=== PATIENT | male | born 1955 | race Caucasian/White ===

== ENCOUNTER 2019-01-12 10:57 | Inpatient (IN) ==
[2019-01-12 12:35] LABS: Basophils % 0.4 % (0.0-0.8); Eosinophils # 0.1 10*3/uL (0.0-0.87); Hematocrit 40.3 VOL% (42.0-52.0); Hemoglobin 13.3 GM/DL (14.0-18.0); Immature Granulocytes % 0.4 %; Immature Granulocytes Absolute 0.01 #; Lymphocytes # 0.9 10*3/uL (1.4-4.0); Mean Corpuscular Volume 101.5 FL (87-102); Mean Platelet Volume 12.1 FL (9.6-12.0); Monocytes % 9.7 % (1.7-12.7); Neutrophils % 54.5 % (38.7-73.9); Red Blood Count 3.97 MC/CUMM (3.8-5.5); White Blood Count 2.7 T/CUMM (4-12)
[2019-01-12 12:39] LABS: Platelet Count 45 T/CUMM (130-400)
[2019-01-12 12:57] LABS: Albumin 3.3 G/DL (3.4-5.0); Bilirubin,Total 1.8 MG/DL (0.2-1.0); Calcium 9.5 MG/DL (8.5-10.1); Total Protein 7.7 G/DL (6.4-8.3)
[2019-01-12 12:58] LABS: Platelet Estimate Decreased
[2019-01-12 12:59] LABS: Anisocytosis 1+
[2019-01-12] MEDS ORDERED: cloNIDine 0.1 MG TABLET PO PRN (13:59)
[2019-01-12] MEDS ORDERED: NITROGLYCERIN SL 0.4 MG TABLET SL PRN (13:59)
[2019-01-12] MEDS ORDERED: NALOXONE 0.4 MG/ML VIAL IV STA (14:22)
[2019-01-12] MEDS ORDERED: GLUCAGON 1 MG VIAL IM PRN (14:37)
[2019-01-12] MEDS ORDERED: DEXTROSE 50% 25 GM/50 ML VIAL IV PRN (14:37)
[2019-01-12] MEDS ORDERED: hydrALAZINE 20 MG/1 ML VIAL IV PRN (14:49)
[2019-01-12 14:51] LABS: Allen Test Positive; Pt O2 Delivery Device Room Air
[2019-01-12 14:52] LABS: ABG Base Excess 0.2 MMOL/L (-2.5-2.5); ABG HCO3 24.6 MMOL/L (20-26); ABG PCO2 34.9 MM HG (35-48); ABG PH 7.441 (7.35-7.45); ABG TCO2 20.7 MMOL/L (23-27)
[2019-01-12] MEDS ORDERED: LACTULOSE 320 GM/480 ML BOTTLE RECTAL ONE (18:00)
[2019-01-12] MEDS: INSULIN REGULAR 100 UNIT/ML SUBCUT SCH (18:32)
[2019-01-12] MEDS: PIPERACILLIN/TAZOBACTAM 3,375 MG in SODIUM CHLORIDE 0.9% 100 ML IV SCH (18:32)
[2019-01-12 18:40] LABS: Hepatitis B Core IgM Quant 0.08 Index; Hepatitis B Surface Ag Quant < 0.10 Index; Hepatitis B Surface Ag Result Negative (Negative); Hepatitis C Virus Ab Result Negative (Negative)
[2019-01-12 20:42] LABS: Apearance,Urine CLEAR (Clear); Bilirubin,Urine Negative (Negative); Blood, Urine Negative (Negative); Glucose,Urine (UA) Negative (Negative); Hyaline Casts,Urine 1 /LPF (0-3); Ketones,Urine Negative (Negative); Mucus,Urine Occasional /LPF (Occasional); Nitrite,Urine Negative (Negative); Protein,Urine Negative; Squamous Epithelial Cell,Urine Occasional /HPF (0-10); Urine Color Yellow (Yellow); Urine Specific Gravity 1.017 (1.001-1.035); WBC,Urine 1 /HPF (0-6)
[2019-01-12] MEDS ORDERED: LACTULOSE 20 GM/30 ML UDCUP PO ONE (21:00)
[2019-01-12] MEDS ORDERED: SIMVASTATIN 10 MG TABLET PO SCH (21:00)
[2019-01-12] MEDS: GLIMEPIRIDE 4 MG TABLET PO SCH (21:15)
[2019-01-12] MEDS ORDERED: VANCOMYCIN INJ 1,500 MG in SODIUM CHLORIDE 0.9% 500 ML IV SCH (22:00)
[2019-01-13] MEDS: INSULIN REGULAR 100 UNIT/ML SUBCUT SCH ×4 (00:36→18:17)
[2019-01-13] MEDS: PIPERACILLIN/TAZOBACTAM 3,375 MG in SODIUM CHLORIDE 0.9% 100 ML IV SCH ×3 (02:55→18:02)
[2019-01-13 05:48] LABS: Basophils % 0.5 % (0.0-0.8); Eosinophils # 0.1 10*3/uL (0.0-0.87); Eosinophils % 2.2 % (0.00-10.9); Hemoglobin 12.5 GM/DL (14.0-18.0); Immature Granulocytes % 0.2 %; Immature Granulocytes Absolute 0.01 #; Lymphocytes # 1.1 10*3/uL (1.4-4.0); Lymphocytes % 26.5 % (21.2-54.2); Mean Corpuscular HGB Conc 32.9 GM/DL (32-36); Mean Corpuscular Volume 102.2 FL (87-102); Mean Platelet Volume 12.9 FL (9.6-12.0); Monocytes % 12.5 % (1.7-12.7); Neutrophils % 58.1 % (38.7-73.9); Platelet Count 48 T/CUMM (130-400); Red Blood Count 3.72 MC/CUMM (3.8-5.5); Red Cell Distribution Width 15.2 % (9.3-17.3); White Blood Count 4.1 T/CUMM (4-12)
[2019-01-13 06:13] LABS: Atypical Lymphocytes Few; Eosinophils 1 % (0-10); Hypochromasia Slight; Lymphocytes 33 % (20-55); Macrocytosis Slight; Platelet Estimate Decreased; Segmented Neutrophils 60 % (50-85); Total Cells Counted 100
[2019-01-13 06:38] LABS: Bilirubin,Total 1.4 MG/DL (0.2-1.0); Calcium 8.7 MG/DL (8.5-10.1); Osmolality,Calculated 294.7 MOS/KG (273-304); Total Protein 7.1 G/DL (6.4-8.3)
[2019-01-13] MEDS ORDERED: MAGNESIUM SULF RIDER 4 GM in PREMIX 1 EACH IV ONE (07:16)
[2019-01-13] MEDS ORDERED: SODIUM PHOSPHATE INJ 30 MMOL in SODIUM CHLORIDE 0.9% 250 ML IV ONE (08:00)
[2019-01-13] MEDS: GLIMEPIRIDE 4 MG TABLET PO SCH ×2 (08:28→21:25)
[2019-01-13] MEDS: FENOFIBRATE 145 MG TABLET PO SCH (08:28)
[2019-01-13] MEDS: SERTRALINE 25 MG TABLET PO SCH (08:28)
[2019-01-13] MEDS: NALOXEGOL 25 MG PO SCH (08:29)
[2019-01-13] MEDS: TAMSULOSIN 0.4 MG CAPSULE PO SCH (08:29)
[2019-01-13] MEDS: ISOSORBIDE MONONITRATE 60 MG TABLET PO SCH (08:29)
[2019-01-13] MEDS: FERROUS SULFATE 325 MG TABLET PO SCH (08:29)
[2019-01-13] MEDS ORDERED: LACTULOSE 20 GM/30 ML UDCUP PO PRN (08:37)
[2019-01-13] MEDS: LACTULOSE 20 GM/30 ML UDCUP PO SCH ×3 (10:30→21:25)
[2019-01-13] MEDS: RIFAXIMIN 550 MG TABLET PO SCH ×2 (16:28→21:25)
[2019-01-14] MEDS: INSULIN REGULAR 100 UNIT/ML SUBCUT SCH ×4 (00:37→18:33)
[2019-01-14] MEDS: PIPERACILLIN/TAZOBACTAM 3,375 MG in SODIUM CHLORIDE 0.9% 100 ML IV SCH ×3 (01:26→17:14)
[2019-01-14] MEDS: LACTULOSE 20 GM/30 ML UDCUP PO SCH ×4 (03:16→21:06)
[2019-01-14 06:20] LABS: Basophils % 0.2 % (0.0-0.8); Eosinophils # 0.1 10*3/uL (0.0-0.87); Hematocrit 39.6 VOL% (42.0-52.0); Hemoglobin 12.8 GM/DL (14.0-18.0); Immature Granulocytes % 0.4 %; Immature Granulocytes Absolute 0.02 #; Lymphocytes # 0.6 10*3/uL (1.4-4.0); Lymphocytes % 13.7 % (21.2-54.2); Mean Corpuscular HGB Conc 32.3 GM/DL (32-36); Mean Corpuscular Volume 102.3 FL (87-102); Mean Platelet Volume 12.2 FL (9.6-12.0); Monocytes % 12.4 % (1.7-12.7); Neutrophils % 71.3 % (38.7-73.9); Red Blood Count 3.87 MC/CUMM (3.8-5.5); Red Cell Distribution Width 15.4 % (9.3-17.3); White Blood Count 4.5 T/CUMM (4-12)
[2019-01-14 06:21] LABS: Platelet Count 43 T/CUMM (130-400)
[2019-01-14 06:36] LABS: Albumin 3.1 G/DL (3.4-5.0); Bilirubin,Total 2.3 MG/DL (0.2-1.0); Calcium 8.5 MG/DL (8.5-10.1); Osmolality,Calculated 292.7 MOS/KG (273-304); Risk Ratio 3.71; Total Protein 7.2 G/DL (6.4-8.3); VLDL CHOLESTEROL 28.2 MG/DL
[2019-01-14] MEDS: FERROUS SULFATE 325 MG TABLET PO SCH (10:20)
[2019-01-14] MEDS: SERTRALINE 25 MG TABLET PO SCH (10:20)
[2019-01-14] MEDS: NALOXEGOL 25 MG PO SCH (10:21)
[2019-01-14] MEDS: TAMSULOSIN 0.4 MG CAPSULE PO SCH (10:21)
[2019-01-14] MEDS: RIFAXIMIN 550 MG TABLET PO SCH ×2 (10:21→21:06)
[2019-01-14] MEDS: ISOSORBIDE MONONITRATE 60 MG TABLET PO SCH (10:21)
[2019-01-14] MEDS: GLIMEPIRIDE 4 MG TABLET PO SCH ×2 (10:21→21:06)
[2019-01-14] MEDS: FENOFIBRATE 145 MG TABLET PO SCH (10:21)
[2019-01-14] MEDS ORDERED: ACETYLCYSTEINE INJ 15,000 MG in DEXTROSE 5% 100 ML IV ONE (14:00)
[2019-01-14] MEDS: ACETYLCYSTEINE INJ 10,000 MG in DEXTROSE 5% 1,000 ML IV SCH ×2 (16:02→21:06)
[2019-01-15] MEDS: PIPERACILLIN/TAZOBACTAM 3,375 MG in SODIUM CHLORIDE 0.9% 100 ML IV SCH ×3 (00:27→18:02)
[2019-01-15] MEDS: INSULIN REGULAR 100 UNIT/ML SUBCUT SCH ×4 (00:53→18:04)
[2019-01-15] MEDS: LACTULOSE 20 GM/30 ML UDCUP PO SCH ×4 (04:04→23:41)
[2019-01-15 05:30] LABS: Basophils % 0.5 % (0.0-0.8); Eosinophils # 0.1 10*3/uL (0.0-0.87); Eosinophils % 3.4 % (0.00-10.9); Hematocrit 36.3 VOL% (42.0-52.0); Immature Granulocytes % 0.2 %; Immature Granulocytes Absolute 0.01 #; Lymphocytes # 1.2 10*3/uL (1.4-4.0); Lymphocytes % 29.7 % (21.2-54.2); Mean Corpuscular HGB Conc 33.1 GM/DL (32-36); Mean Corpuscular Volume 100.8 FL (87-102); Mean Platelet Volume 12.8 FL (9.6-12.0); Monocytes % 10.6 % (1.7-12.7); Neutrophils % 55.6 % (38.7-73.9); Red Cell Distribution Width 15.2 % (9.3-17.3); White Blood Count 4.1 T/CUMM (4-12)
[2019-01-15 05:33] LABS: Albumin 2.7 G/DL (3.4-5.0); Bilirubin,Total 2.4 MG/DL (0.2-1.0); Calcium 8.4 MG/DL (8.5-10.1); Total Protein 6.9 G/DL (6.4-8.3)
[2019-01-15 05:43] LABS: Platelet Count 47 T/CUMM (130-400)
[2019-01-15] MEDS: ACETYLCYSTEINE INJ 10,000 MG in DEXTROSE 5% 1,000 ML IV SCH ×3 (06:00→17:58)
[2019-01-15] MEDS ORDERED: MAGNESIUM SULF RIDER 4 GM in PREMIX 1 EACH IV ONE (07:11)
[2019-01-15] MEDS ORDERED: POTASSIUM CHLORIDE 20 MEQ TABLET PO ONE (07:12)
[2019-01-15] MEDS ORDERED: POTASSIUM PHOSPHATE 30 MMOL in SODIUM CHLORIDE 0.9% 250 ML IV ONE (07:45)
[2019-01-15] MEDS: INSULIN GLARGINE 100 UNIT/ML SUBCUT SCH (09:50)
[2019-01-15] MEDS: RIFAXIMIN 550 MG TABLET PO SCH ×2 (09:52→20:41)
[2019-01-15] MEDS: ISOSORBIDE MONONITRATE 60 MG TABLET PO SCH (09:53)
[2019-01-15] MEDS: GLIMEPIRIDE 4 MG TABLET PO SCH ×2 (09:53→20:41)
[2019-01-15] MEDS: SERTRALINE 25 MG TABLET PO SCH (09:53)
[2019-01-15] MEDS: FENOFIBRATE 145 MG TABLET PO SCH (09:54)
[2019-01-15] MEDS: FERROUS SULFATE 325 MG TABLET PO SCH (09:54)
[2019-01-15] MEDS: TAMSULOSIN 0.4 MG CAPSULE PO SCH (09:54)
[2019-01-15] MEDS: NALOXEGOL 25 MG PO SCH (12:00)
[2019-01-15] MEDS ORDERED: GLUCAGON 1 MG VIAL IM PRN (17:28)
[2019-01-15] MEDS ORDERED: DEXTROSE 50% 25 GM/50 ML VIAL IV PRN (17:28)
[2019-01-15] MEDS: INSULIN LISPRO 100 UNIT/ML SUBCUT SCH (18:03)
[2019-01-16] MEDS: INSULIN REGULAR 100 UNIT/ML SUBCUT SCH ×4 (00:55→17:53)
[2019-01-16] MEDS: PIPERACILLIN/TAZOBACTAM 3,375 MG in SODIUM CHLORIDE 0.9% 100 ML IV SCH ×3 (02:02→17:22)
[2019-01-16] MEDS: LACTULOSE 20 GM/30 ML UDCUP PO SCH ×4 (03:51→21:11)
[2019-01-16] MEDS: INSULIN GLARGINE 100 UNIT/ML SUBCUT SCH (09:39)
[2019-01-16] MEDS: INSULIN LISPRO 100 UNIT/ML SUBCUT SCH ×3 (09:39→17:22)
[2019-01-16] MEDS: TAMSULOSIN 0.4 MG CAPSULE PO SCH (09:40)
[2019-01-16] MEDS: SERTRALINE 25 MG TABLET PO SCH (09:40)
[2019-01-16] MEDS: FENOFIBRATE 145 MG TABLET PO SCH (09:40)
[2019-01-16] MEDS: GLIMEPIRIDE 4 MG TABLET PO SCH ×2 (09:40→21:11)
[2019-01-16] MEDS: ISOSORBIDE MONONITRATE 60 MG TABLET PO SCH (09:40)
[2019-01-16] MEDS: ACETYLCYSTEINE INJ 10,000 MG in DEXTROSE 5% 1,000 ML IV SCH ×2 (09:41→13:38)
[2019-01-16] MEDS: FERROUS SULFATE 325 MG TABLET PO SCH (09:41)
[2019-01-16] MEDS: RIFAXIMIN 550 MG TABLET PO SCH ×2 (09:41→21:11)
[2019-01-16] MEDS ORDERED: POTASSIUM CHLORIDE 20 MEQ TABLET PO ONE (10:36)
[2019-01-16] MEDS ORDERED: MAGNESIUM SULF RIDER 2 GM in PREMIX 1 EACH IV ONE (10:37)
[2019-01-17] MEDS: INSULIN REGULAR 100 UNIT/ML SUBCUT SCH ×3 (01:35→13:03)
[2019-01-17] MEDS: PIPERACILLIN/TAZOBACTAM 3,375 MG in SODIUM CHLORIDE 0.9% 100 ML IV SCH ×2 (01:37→09:17)
[2019-01-17] MEDS: LACTULOSE 20 GM/30 ML UDCUP PO SCH ×2 (03:56→08:56)
[2019-01-17 08:19] LABS: Calcium 8.4 MG/DL (8.5-10.1)
[2019-01-17 08:20] LABS: Osmolality,Calculated 290.1 MOS/KG (273-304)
[2019-01-17] MEDS: GLIMEPIRIDE 4 MG TABLET PO SCH (08:55)
[2019-01-17] MEDS: TAMSULOSIN 0.4 MG CAPSULE PO SCH (08:55)
[2019-01-17] MEDS: SERTRALINE 25 MG TABLET PO SCH (08:55)
[2019-01-17] MEDS: FERROUS SULFATE 325 MG TABLET PO SCH (08:55)
[2019-01-17] MEDS: ISOSORBIDE MONONITRATE 60 MG TABLET PO SCH (08:55)
[2019-01-17] MEDS: FENOFIBRATE 145 MG TABLET PO SCH (08:56)
[2019-01-17] MEDS: INSULIN LISPRO 100 UNIT/ML SUBCUT SCH ×2 (08:56→13:03)
[2019-01-17] MEDS: INSULIN GLARGINE 100 UNIT/ML SUBCUT SCH (08:56)
[2019-01-17] MEDS: RIFAXIMIN 550 MG TABLET PO SCH (08:56)
[2019-01-17 10:11] LABS: Folate 5.9 NG/ML (5.4-24.0)
[2019-01-17 11:51] VITALS: BP 127/65
== END 2019-01-17 13:02 | DRG 441 ==
LOC: EDBD → EDUNIT# → N.EDINP 10:57 → N.ED 10:57 → N.2E 17:40
PROVIDERS: ADMIT Internal Medicine; ATTEND Internal Medicine

== ENCOUNTER 2019-04-06 18:20 | Inpatient (IN) ==
[2019-04-06 20:01] LABS: Basophils % 0.5 % (0.0-0.8); Eosinophils # 0.1 10*3/uL (0.0-0.87); Eosinophils % 2.6 % (0.00-10.9); Hematocrit 41.1 VOL% (42.0-52.0); Hemoglobin 13.1 GM/DL (14.0-18.0); Immature Granulocytes % 0.3 %; Immature Granulocytes Absolute 0.01 #; Lymphocytes % 25.1 % (21.2-54.2); Mean Corpuscular HGB Conc 31.9 GM/DL (32-36); Mean Corpuscular Volume 103.3 FL (87-102); Mean Platelet Volume 12.7 FL (9.6-12.0); Monocytes % 11.8 % (1.7-12.7); Neutrophils % 59.7 % (38.7-73.9); Platelet Count 53 T/CUMM (130-400); Red Blood Count 3.98 MC/CUMM (3.8-5.5); Red Cell Distribution Width 16.1 % (9.3-17.3); White Blood Count 3.9 T/CUMM (4-12)
[2019-04-06 20:09] LABS: INR 1.2; PT Patient Result 12.8 SECS (9.6-12.2)
[2019-04-06 20:13] LABS: Alanine Aminotransferase 27 U/L (16-61); Albumin 3.3 G/DL (3.4-5.0); Alkaline Phosphatase 130 U/L (45-117); Aspartate Amino Transferase 51 U/L (0-37); Blood Urea Nitrogen 21 MG/DL (7-18); Calcium 9.5 MG/DL (8.5-10.1); Estimated Glom Filtration Rate 74 ML/MIN; Glucose 184 MG/DL (74-106); Osmolality,Calculated 286.4 MOS/KG (273-304); Total Protein 7.8 G/DL (6.4-8.3); Troponin I < 0.015 NG/ML (0.00-0.045)
[2019-04-06 20:39] LABS: Hypochromasia Slight
[2019-04-06 20:40] LABS: Anisocytosis 1+; Macrocytosis 1+
[2019-04-06 20:41] LABS: Platelet Estimate Adequate
[2019-04-06] MEDS ORDERED: MAGNESIUM SULF RIDER 2 GM in PREMIX 1 EACH IV STA (21:05)
[2019-04-06 21:55] LABS: Apearance,Urine CLEAR (Clear); Bilirubin,Urine Negative (Negative); Blood, Urine Negative (Negative); Glucose,Urine (UA) 150 mg/dL (Negative); Hyaline Casts,Urine 1 /LPF (0-3); Ketones,Urine Negative (Negative); Mucus,Urine Occasional /LPF (Occasional); Nitrite,Urine Negative (Negative); Protein,Urine Negative; RBC,Urine <1 /HPF (0-4); Squamous Epithelial Cell,Urine Occasional /HPF (0-10); Urine Color Yellow (Yellow); Urine Specific Gravity 1.023 (1.001-1.035); WBC,Urine 3 /HPF (0-6)
[2019-04-06 22:02] LABS: Barbiturates Screen,Urine Negative (Negative); Benzodiazepines Screen,Urine Negative (Negative); Cannabinoid Screen,Urine Negative (Negative); Opiate Screen,Urine Negative (Negative); Phencyclidine Screen,Urine Negative (Negative)
[2019-04-06] MEDS ORDERED: NICOTINE 21 MG/24 HR PATCH TRANSDERM PRN (22:51)
[2019-04-06] MEDS ORDERED: ACETAMINOPHEN 325 MG TABLET PO PRN (22:51)
[2019-04-06] MEDS ORDERED: ALBUTEROL 2.5 MG/3 ML NEB RESP TX PRN (22:51)
[2019-04-06] MEDS ORDERED: ONDANSETRON 4 MG/2 ML VIAL IV PRN (22:51)
[2019-04-06] MEDS ORDERED: guaiFENesin/DM ER 600-30 MG TABLET PO PRN (22:51)
[2019-04-06] MEDS ORDERED: GLUCAGON 1 MG VIAL IM PRN ×2 (22:51→23:11)
[2019-04-06] MEDS ORDERED: DEXTROSE 50% 25 GM/50 ML VIAL IV PRN ×2 (22:51→23:11)
[2019-04-06] MEDS ORDERED: DOCUSATE SODIUM 100 MG CAPSULE PO PRN (22:51)
[2019-04-06] MEDS ORDERED: hydrALAZINE 20 MG/1 ML VIAL IV PRN (22:51)
[2019-04-07] MEDS: LACTULOSE 20 GM/30 ML UDCUP PO SCH ×5 (01:00→20:27)
[2019-04-07 05:21] LABS: Basophils % 0.5 % (0.0-0.8); Eosinophils # 0.2 10*3/uL (0.0-0.87); Eosinophils % 3.8 % (0.00-10.9); Hematocrit 39.2 VOL% (42.0-52.0); Hemoglobin 12.5 GM/DL (14.0-18.0); Immature Granulocytes % 0.5 %; Immature Granulocytes Absolute 0.02 #; Lymphocytes # 1.1 10*3/uL (1.4-4.0); Lymphocytes % 28.9 % (21.2-54.2); Mean Corpuscular HGB Conc 31.9 GM/DL (32-36); Mean Corpuscular Volume 103.2 FL (87-102); Mean Platelet Volume 12.5 FL (9.6-12.0); Monocytes % 12.9 % (1.7-12.7); Neutrophils % 53.4 % (38.7-73.9); Platelet Count 54 T/CUMM (130-400); Red Cell Distribution Width 16.1 % (9.3-17.3)
[2019-04-07 05:45] LABS: Eosinophils 3 % (0-10); Hypochromasia 1+; Lymphocytes 23 % (20-55); Nucleated Red Blood Cells 1 (0-5); Ovalocytes Slight; Platelet Estimate Decreased; Segmented Neutrophils 61 % (50-85); Total Cells Counted 100
[2019-04-07 05:46] LABS: Macrocytosis Slight
[2019-04-07 06:09] LABS: Albumin 3.1 G/DL (3.4-5.0); Bilirubin,Total 2.3 MG/DL (0.2-1.0); Calcium 9.4 MG/DL (8.5-10.1); Osmolality,Calculated 288.1 MOS/KG (273-304); Total Protein 7.2 G/DL (6.4-8.3)
[2019-04-07] MEDS: INSULIN LISPRO 100 UNIT/ML SUBCUT SCH ×4 (07:49→20:27)
[2019-04-07] MEDS ORDERED: ENOXAPARIN 40 MG/0.4 ML SYRINGE SUBCUT SCH (09:00)
[2019-04-07] MEDS: PANTOPRAZOLE 40 MG TABLET PO SCH (09:48)
[2019-04-08] MEDS: LACTULOSE 20 GM/30 ML UDCUP PO SCH ×3 (03:25→15:15)
[2019-04-08 05:33] LABS: Basophils % 0.6 % (0.0-0.8); Eosinophils # 0.1 10*3/uL (0.0-0.87); Eosinophils % 4.3 % (0.00-10.9); Hematocrit 38.1 VOL% (42.0-52.0); Hemoglobin 12.3 GM/DL (14.0-18.0); Immature Granulocytes % 0.3 %; Immature Granulocytes Absolute 0.01 #; Lymphocytes # 1.2 10*3/uL (1.4-4.0); Lymphocytes % 36.6 % (21.2-54.2); Mean Corpuscular HGB Conc 32.3 GM/DL (32-36); Mean Corpuscular Volume 102.7 FL (87-102); Mean Platelet Volume 12.8 FL (9.6-12.0); Monocytes % 12.1 % (1.7-12.7); Neutrophils % 46.1 % (38.7-73.9); Red Blood Count 3.71 MC/CUMM (3.8-5.5); Red Cell Distribution Width 16.2 % (9.3-17.3); White Blood Count 3.2 T/CUMM (4-12)
[2019-04-08 05:34] LABS: Platelet Count 50 T/CUMM (130-400)
[2019-04-08 05:51] LABS: Calcium 9.2 MG/DL (8.5-10.1)
[2019-04-08 06:13] LABS: Hypochromasia 1+; Platelet Estimate Decreased
[2019-04-08] MEDS ORDERED: MAGNESIUM SULF RIDER 4 GM in PREMIX 1 EACH IV PRN (07:26)
[2019-04-08] MEDS ORDERED: MAGNESIUM SULF RIDER 2 GM in PREMIX 1 EACH IV PRN (07:26)
[2019-04-08] MEDS: INSULIN LISPRO 100 UNIT/ML SUBCUT SCH ×2 (07:37→12:57)
[2019-04-08] MEDS: PANTOPRAZOLE 40 MG TABLET PO SCH (08:35)
[2019-04-08 12:02] VITALS: BP 150/63
== END 2019-04-08 15:48 | DRG 441 ==
LOC: N.ED 18:20 → N.EDINP 22:51 → N.2E 04-07 00:12
PROVIDERS: ADMIT Internal Medicine; ATTEND Internal Medicine

== ENCOUNTER 2019-06-06 18:32 | Inpatient (IN) ==
[2019-06-06] MEDS ORDERED: ONDANSETRON 4 MG/2 ML VIAL IV STA (19:16)
[2019-06-06] MEDS ORDERED: FUROSEMIDE 40 MG/4 ML VIAL IV STA (19:16)
[2019-06-06] MEDS ORDERED: AZITHROMYCIN INJ 500 MG in SODIUM CHLORIDE 0.9% 250 ML IV STA (19:16)
[2019-06-06] MEDS ORDERED: methylPREDNISolone SOD SUC 125 MG/2 ML VIAL IV STA (19:16)
[2019-06-06] MEDS ORDERED: ALBUTEROL/IPRATROPIUM 3 ML NEB RESP TX STA (19:16)
[2019-06-06 19:29] LABS: Basophils % 0.2 % (0.0-0.8); Hematocrit 38.7 VOL% (42.0-52.0); Immature Granulocytes % 1.1 %; Immature Granulocytes Absolute 0.05 #; Lymphocytes # 0.9 10*3/uL (1.4-4.0); Lymphocytes % 20.1 % (21.2-54.2); Mean Corpuscular HGB Conc 33.6 GM/DL (32-36); Mean Corpuscular Volume 97.7 FL (87-102); Monocytes % 8.7 % (1.7-12.7); Neutrophils % 69.9 % (38.7-73.9); Platelet Count 56 T/CUMM (130-400); Red Blood Count 3.96 MC/CUMM (3.8-5.5); Red Cell Distribution Width 15.3 % (9.3-17.3); White Blood Count 4.4 T/CUMM (4-12)
[2019-06-06 19:53] LABS: ABG Base Excess -1.4 MMOL/L (-2.5-2.5); ABG Oxygen Saturation 38.5 % (95-100); ABG PCO2 36.3 MM HG (35-48); ABG PH 7.406 (7.35-7.45); ABG TCO2 20.3 MMOL/L (23-27)
[2019-06-06 20:02] LABS: Anisocytosis Slight; Lymphocytes 13 % (20-55); Macrocytosis Slight; Platelet Estimate Decreased; Segmented Neutrophils 79 % (50-85); Total Cells Counted 100
[2019-06-06 20:04] LABS: ABG PO2 24.9 MM HG (80-95)
[2019-06-06 21:01] LABS: INR 1.2; PT Patient Result 12.8 SECS (9.8-11.9)
[2019-06-06] MEDS ORDERED: PIPERACILLIN/TAZOBACTAM 3,375 MG in SODIUM CHLORIDE 0.9% 100 ML IV STA (21:10)
[2019-06-06] MEDS ORDERED: VANCOMYCIN INJ 1,000 MG in SODIUM CHLORIDE 0.9% 250 ML IV STA (21:10)
[2019-06-06 21:15] LABS: Albumin 2.5 G/DL (3.4-5.0); Bilirubin,Total 2.26 MG/DL (0.2-1.0); Calcium 9.1 MG/DL (8.5-10.1); Osmolality,Calculated 278.8 MOS/KG (273-304); Total Protein 7.6 G/DL (6.4-8.3)
[2019-06-06 21:16] LABS: Ferritin 1682.6 ng/ml (26-388)
[2019-06-06] MEDS ORDERED: MAGNESIUM SULF RIDER 2 GM in PREMIX 1 EACH IV STA (21:20)
[2019-06-06 22:02] LABS: ABG Base Excess -2.8 MMOL/L (-2.5-2.5); ABG HCO3 19.6 MMOL/L (20-26); ABG Oxygen Saturation 81.2 % (95-100); ABG PH 7.464 (7.35-7.45); ABG PO2 45.9 MM HG (80-95); ABG TCO2 20.5 MMOL/L (23-27)
[2019-06-07] MEDS ORDERED: ONDANSETRON 4 MG/2 ML VIAL IV PRN (00:06)
[2019-06-07] MEDS ORDERED: GLUCAGON 1 MG VIAL IM PRN (00:06)
[2019-06-07] MEDS ORDERED: DEXTROSE 50% 25 GM/50 ML SYRINGE IV PRN (00:06)
[2019-06-07] MEDS ORDERED: VANCOMYCIN 1,000 MG VIAL ONE (00:11)
[2019-06-07] MEDS ORDERED: MAGNESIUM SULF RIDER 4 GM in PREMIX 1 EACH IV PRN (00:18)
[2019-06-07] MEDS: HYDROXYCHLOROQUINE 200 MG TABLET PO SCH ×2 (02:00→22:40)
[2019-06-07] MEDS: PIPERACILLIN/TAZOBACTAM 3,375 MG in SODIUM CHLORIDE 0.9% 100 ML IV SCH ×3 (04:25→23:47)
[2019-06-07 05:04] LABS: Apearance,Urine Slightly Hazy (Clear); Bilirubin,Urine Negative (Negative); Blood, Urine Negative (Negative); Glucose,Urine (UA) >=500 mg/dL (Negative); Ketones,Urine Negative (Negative); Mucus,Urine Occasional /LPF (Occasional); Nitrite,Urine Negative (Negative); Protein,Urine Negative; RBC,Urine 9 /HPF (0-4); Squamous Epithelial Cell,Urine Occasional /HPF (0-10); Urine Color Yellow (Yellow); Urine Urobilinogen < 2.0 EU/DL (0.2-1.0); WBC,Urine 24 /HPF (0-6)
[2019-06-07 06:31] LABS: Basophils % 0.3 % (0.0-0.8); Hemoglobin 13.2 GM/DL (14.0-18.0); Immature Granulocytes % 0.7 %; Immature Granulocytes Absolute 0.02 #; Lymphocytes # 0.4 10*3/uL (1.4-4.0); Lymphocytes % 13.3 % (21.2-54.2); Mean Corpuscular HGB Conc 32.2 GM/DL (32-36); Mean Corpuscular Volume 101.7 FL (87-102); Mean Platelet Volume 11.9 FL (9.6-12.0); Monocytes % 3.3 % (1.7-12.7); Neutrophils % 82.4 % (38.7-73.9); Red Blood Count 4.03 MC/CUMM (3.8-5.5); Red Cell Distribution Width 15.1 % (9.3-17.3)
[2019-06-07 06:32] LABS: Platelet Count 54 T/CUMM (130-400)
[2019-06-07 06:49] LABS: Hypochromasia 1+; Lymphocytes 10 % (20-55); Platelet Estimate Decreased; Segmented Neutrophils 83 % (50-85); Total Cells Counted 100
[2019-06-07 06:50] LABS: Macrocytosis Slight; Ovalocytes Slight
[2019-06-07 08:40] LABS: Albumin 2.3 G/DL (3.4-5.0); Total Protein 7.3 G/DL (6.4-8.3)
[2019-06-07] MEDS: AZITHROMYCIN 250 MG TABLET PO SCH (09:02)
[2019-06-07] MEDS: INSULIN LISPRO 100 UNIT/ML SUBCUT SCH ×4 (09:02→22:40)
[2019-06-07] MEDS: ZINC SULFATE 220 MG CAPSULE PO SCH (09:02)
[2019-06-07] MEDS ORDERED: HALOPERIDOL 5 MG/ML AMP ONE (21:46)
[2019-06-07] MEDS ORDERED: HALOPERIDOL 5 MG/ML AMP IM ONE (22:01)
[2019-06-07] MEDS ORDERED: HALOPERIDOL 5 MG/ML AMP IV PRN (22:06)
[2019-06-07 22:51] LABS: Apearance,Urine CLEAR (Clear); Bilirubin,Urine Negative (Negative); Blood, Urine Negative (Negative); Glucose,Urine (UA) >=500 mg/dL (Negative); Granular Casts,Urine 1 /LPF (0-1); Hyaline Casts,Urine 1 /LPF (0-3); Ketones,Urine Negative (Negative); Nitrite,Urine Negative (Negative); Protein,Urine Negative; RBC,Urine 1 /HPF (0-4); Urine Color Yellow (Yellow); Urine Specific Gravity 1.022 (1.001-1.035); Urine Urobilinogen < 2.0 EU/DL (0.2-1.0); WBC,Urine <1 /HPF (0-6)
[2019-06-07] MEDS ORDERED: LORazepam 2 MG/1 ML VIAL IV ONE (22:56)
[2019-06-08] MEDS ORDERED: ETOMIDATE 20 MG/10 ML VIAL IV ONE (00:21)
[2019-06-08] MEDS ORDERED: VECURONIUM 10 MG VIAL IV ONE (00:21)
[2019-06-08 04:18] LABS: Basophils % 0.2 % (0.0-0.8); Hematocrit 38.1 VOL% (42.0-52.0); Hemoglobin 12.3 GM/DL (14.0-18.0); Immature Granulocytes % 0.8 %; Immature Granulocytes Absolute 0.04 #; Lymphocytes # 0.5 10*3/uL (1.4-4.0); Lymphocytes % 9.2 % (21.2-54.2); Mean Corpuscular HGB Conc 32.3 GM/DL (32-36); Mean Corpuscular Volume 101.6 FL (87-102); Mean Platelet Volume 12.2 FL (9.6-12.0); Neutrophils % 82.8 % (38.7-73.9); Red Blood Count 3.75 MC/CUMM (3.8-5.5); Red Cell Distribution Width 15.3 % (9.3-17.3)
[2019-06-08 04:21] LABS: Platelet Count 69 T/CUMM (130-400); White Blood Count 4.9 T/CUMM (4-12)
[2019-06-08 05:01] LABS: Band Neutrophils 1 % (0-10); Lymphocytes 6 % (20-55); Platelet Estimate Decreased; Segmented Neutrophils 87 % (50-85); Total Cells Counted 100
[2019-06-08 05:02] LABS: Hypochromasia Slight
[2019-06-08] MEDS: PIPERACILLIN/TAZOBACTAM 3,375 MG in SODIUM CHLORIDE 0.9% 100 ML IV SCH ×3 (05:26→20:13)
[2019-06-08 07:28] LABS: Albumin 2.4 G/DL (3.4-5.0); Calcium 8.8 MG/DL (8.5-10.1); Osmolality,Calculated 294.5 MOS/KG (273-304); Total Protein 7.2 G/DL (6.4-8.3)
[2019-06-08] MEDS: INSULIN LISPRO 100 UNIT/ML SUBCUT SCH ×4 (07:51→20:12)
[2019-06-08] MEDS ORDERED: FUROSEMIDE 40 MG/4 ML VIAL IV ONE (08:05)
[2019-06-08] MEDS ORDERED: cloNIDine 0.1 MG TABLET PO PRN (08:06)
[2019-06-08] MEDS: AZITHROMYCIN 250 MG TABLET PO SCH (08:24)
[2019-06-08] MEDS: TAMSULOSIN 0.4 MG CAPSULE PO SCH (08:40)
[2019-06-08] MEDS: LACTULOSE 20 GM/30 ML UDCUP PO SCH ×4 (08:40→20:13)
[2019-06-08] MEDS: ISOSORBIDE MONONITRATE 60 MG TABLET PO SCH (08:53)
[2019-06-08] MEDS: FENOFIBRATE 145 MG TABLET PO SCH (08:53)
[2019-06-08] MEDS: HYDROXYCHLOROQUINE 200 MG TABLET PO SCH ×2 (08:53→20:12)
[2019-06-08] MEDS: CLOPIDOGREL 75 MG TABLET PO SCH (08:53)
[2019-06-08 09:26] LABS: ABG Base Excess -1.6 MMOL/L (-2.5-2.5); ABG HCO3 21.7 MMOL/L (20-26); ABG Oxygen Saturation 95.6 % (95-100); ABG PCO2 32.4 MM HG (35-48); ABG PH 7.444 (7.35-7.45); ABG PO2 83.3 MM HG (80-95); ABG TCO2 22.7 MMOL/L (23-27)
[2019-06-08] MEDS: ACETAMINOPHEN 325 MG TABLET PO PRN (11:24)
[2019-06-08] MEDS: CLORAZEPATE 3.75 MG TABLET PO SCH ×2 (15:22→20:12)
[2019-06-08] MEDS: LORazepam 2 MG/1 ML VIAL IV PRN (18:10)
[2019-06-08] MEDS ORDERED: LORazepam 2 MG/1 ML VIAL ONE (18:10)
[2019-06-08] MEDS ORDERED: METOPROLOL TARTRATE 5 MG/5 ML VIAL IV ONE ×2 (22:13→22:21)
[2019-06-09] MEDS: LORazepam 2 MG/1 ML VIAL IV PRN (00:49)
[2019-06-09] MEDS ORDERED: diphenhydrAMINE 50 MG/1 ML VIAL IV ONE (01:56)
[2019-06-09] MEDS: dilTIAZem Drip 125 MG/125 ML PREMIX IV SCH (02:08)
[2019-06-09 04:29] LABS: Basophils % 0.2 % (0.0-0.8); Hematocrit 43.4 VOL% (42.0-52.0); Hemoglobin 13.9 GM/DL (14.0-18.0); Immature Granulocytes % 1.1 %; Immature Granulocytes Absolute 0.07 #; Lymphocytes # 0.6 10*3/uL (1.4-4.0); Lymphocytes % 9.6 % (21.2-54.2); Mean Corpuscular Volume 101.6 FL (87-102); Mean Platelet Volume 11.1 FL (9.6-12.0); Monocytes % 7.9 % (1.7-12.7); Neutrophils % 81.2 % (38.7-73.9); Platelet Count 108 T/CUMM (130-400); Red Blood Count 4.27 MC/CUMM (3.8-5.5); Red Cell Distribution Width 15.1 % (9.3-17.3); White Blood Count 6.5 T/CUMM (4-12)
[2019-06-09 04:48] LABS: Calcium 8.5 MG/DL (8.5-10.1); Osmolality,Calculated 291.5 MOS/KG (273-304)
[2019-06-09] MEDS ORDERED: ETOMIDATE 20 MG/10 ML VIAL IV ONE ×2 (05:13→05:18)
[2019-06-09] MEDS ORDERED: VECURONIUM 10 MG VIAL IV ONE ×2 (05:14→05:18)
[2019-06-09 05:29] LABS: Anisocytosis 2+; Lymphocytes 6 % (20-55); Macrocytosis 2+; Nucleated Red Blood Cells 1 (0-5); Platelet Estimate Decreased; Segmented Neutrophils 91 % (50-85); Total Cells Counted 100
[2019-06-09] MEDS: PIPERACILLIN/TAZOBACTAM 3,375 MG in SODIUM CHLORIDE 0.9% 100 ML IV SCH ×3 (06:04→20:26)
[2019-06-09 06:21] LABS: ABG HCO3 25.3 MMOL/L (20-26); ABG Oxygen Saturation 99.3 % (95-100); ABG PCO2 35.4 MM HG (35-48); ABG PH 7.449 (7.35-7.45); Allen Test Positive; Pt O2 Delivery Device Ventilator
[2019-06-09] MEDS: POTASSIUM CHLORIDE RIDER 10 MEQ in PREMIX 1 EACH IV PRN ×8 (06:26→20:42)
[2019-06-09] MEDS: MAGNESIUM SULF RIDER 2 GM in PREMIX 1 EACH IV PRN (06:38)
[2019-06-09] MEDS ORDERED: METOPROLOL TARTRATE 5 MG/5 ML VIAL IV ONE (07:30)
[2019-06-09] MEDS: INSULIN LISPRO 100 UNIT/ML SUBCUT SCH ×4 (08:25→23:56)
[2019-06-09] MEDS: LACTULOSE 20 GM/30 ML UDCUP PO SCH ×4 (08:50→20:25)
[2019-06-09] MEDS: FENOFIBRATE 145 MG TABLET PO SCH (08:50)
[2019-06-09] MEDS: CLORAZEPATE 3.75 MG TABLET PO SCH ×3 (08:50→20:26)
[2019-06-09] MEDS: TAMSULOSIN 0.4 MG CAPSULE PO SCH (08:50)
[2019-06-09] MEDS: ZINC SULFATE 220 MG CAPSULE PO SCH (08:50)
[2019-06-09] MEDS: CLOPIDOGREL 75 MG TABLET PO SCH (08:50)
[2019-06-09] MEDS: HYDROXYCHLOROQUINE 200 MG TABLET PO SCH ×2 (08:50→20:26)
[2019-06-09] MEDS: AZITHROMYCIN 250 MG TABLET PO SCH (08:50)
[2019-06-09] MEDS: ISOSORBIDE MONONITRATE 60 MG TABLET PO SCH (10:39)
[2019-06-09] MEDS: APIXABAN 5 MG TABLET PER TUBE SCH ×2 (12:35→20:25)
[2019-06-09] MEDS: DILTIAZEM 30 MG TABLET PO SCH ×3 (12:35→23:56)
[2019-06-09] MEDS: PANTOPRAZOLE 40 MG VIAL IV SCH (12:40)
[2019-06-09] MEDS: DESITIN 4OZ/NYSTATIN 15 GRAM MIXTURE PASTE TOP SCH ×2 (12:45→20:26)
[2019-06-09] MEDS: fentaNYL INJ 1,250 MCG in SODIUM CHLORIDE 0.9% 225 ML IV PRN (12:45)
[2019-06-09] MEDS ORDERED: SODIUM CHLORIDE 0.9% 1,000 ML IV ONE (14:10)
[2019-06-09 15:26] LABS: Calcium 8.5 MG/DL (8.5-10.1); Osmolality,Calculated 296.3 MOS/KG (273-304)
[2019-06-09] MEDS: PHENYLEPHRINE DRIP 40 MG/250 ML PREMIX IV PRN (20:43)
[2019-06-09] MEDS: ACETAMINOPHEN 325 MG TABLET PO PRN (20:47)
[2019-06-10] MEDS: PHENYLEPHRINE DRIP 40 MG/250 ML PREMIX IV PRN ×7 (01:47→20:18)
[2019-06-10] MEDS: fentaNYL INJ 1,250 MCG in SODIUM CHLORIDE 0.9% 225 ML IV PRN ×5 (01:48→20:17)
[2019-06-10] MEDS: dilTIAZem Drip 125 MG/125 ML PREMIX IV SCH (02:02)
[2019-06-10] MEDS: PIPERACILLIN/TAZOBACTAM 3,375 MG in SODIUM CHLORIDE 0.9% 100 ML IV SCH ×3 (04:06→22:22)
[2019-06-10] MEDS: DILTIAZEM 30 MG TABLET PO SCH ×4 (05:33→23:53)
[2019-06-10] MEDS: INSULIN LISPRO 100 UNIT/ML SUBCUT SCH ×4 (05:33→23:53)
[2019-06-10] MEDS: CLOPIDOGREL 75 MG TABLET PO SCH (08:07)
[2019-06-10] MEDS: HYDROXYCHLOROQUINE 200 MG TABLET PO SCH ×2 (08:07→20:00)
[2019-06-10] MEDS: LACTULOSE 20 GM/30 ML UDCUP PO SCH ×4 (08:07→20:00)
[2019-06-10] MEDS: APIXABAN 5 MG TABLET PER TUBE SCH ×2 (08:07→20:00)
[2019-06-10] MEDS: TAMSULOSIN 0.4 MG CAPSULE PO SCH (08:07)
[2019-06-10] MEDS: AZITHROMYCIN 250 MG TABLET PO SCH (08:07)
[2019-06-10] MEDS: CLORAZEPATE 3.75 MG TABLET PO SCH (08:08)
[2019-06-10] MEDS: PANTOPRAZOLE 40 MG VIAL IV SCH (08:08)
[2019-06-10] MEDS: FENOFIBRATE 145 MG TABLET PO SCH (08:08)
[2019-06-10] MEDS: DESITIN 4OZ/NYSTATIN 15 GRAM MIXTURE PASTE TOP SCH ×2 (08:09→20:00)
[2019-06-10 08:32] LABS: ABG Base Excess -2.9 MMOL/L (-2.5-2.5); ABG HCO3 21.8 MMOL/L (20-26); ABG Oxygen Saturation 89.1 % (95-100); ABG PCO2 41.3 MM HG (35-48); ABG PH 7.347 (7.35-7.45); ABG PO2 60.4 MM HG (80-95); ABG TCO2 20.1 MMOL/L (23-27)
[2019-06-10 09:56] LABS: Basophils # 0.1 10*3/uL (0.0-0.2); Basophils % 0.4 % (0.0-0.8); Eosinophils # 0.1 10*3/uL (0.0-0.87); Eosinophils % 0.5 % (0.00-10.9); Hematocrit 41.3 VOL% (42.0-52.0); Hemoglobin 12.9 GM/DL (14.0-18.0); Immature Granulocytes Absolute 0.27 #; Lymphocytes # 1.5 10*3/uL (1.4-4.0); Lymphocytes % 10.8 % (21.2-54.2); Mean Corpuscular HGB Conc 31.2 GM/DL (32-36); Mean Corpuscular Volume 103.8 FL (87-102); Mean Platelet Volume 10.2 FL (9.6-12.0); Monocytes % 6.7 % (1.7-12.7); NRBC # 0.07 10*3/uL; Neutrophils % 79.6 % (38.7-73.9); Platelet Count 157 T/CUMM (130-400); Red Blood Count 3.98 MC/CUMM (3.8-5.5); Red Cell Distribution Width 15.9 % (9.3-17.3); White Blood Count 13.4 T/CUMM (4-12)
[2019-06-10 10:13] LABS: Osmolality,Calculated 294.1 MOS/KG (273-304)
[2019-06-10 10:19] LABS: Anisocytosis 1+; Band Neutrophils 3 % (0-10); Lymphocytes 9 % (20-55); Macrocytosis 1+; Metamyelocytes 1 %; Nucleated Red Blood Cells 1 (0-5); Platelet Estimate Normal; Polychromasia Slight; Segmented Neutrophils 81 % (50-85); Smudge Cells Few; Total Cells Counted 100
[2019-06-10] MEDS: ACETAMINOPHEN 325 MG TABLET PO PRN (16:46)
[2019-06-10] MEDS ORDERED: NOREPINEPHRINE 4 MG/4 ML VIAL IV ONE (19:13)
[2019-06-10] MEDS ORDERED: NOREPINEPHRINE 8 MG in SODIUM CHLORIDE 0.9% 242 ML IV PRN (19:13)
[2019-06-10] MEDS: PHENYLEPHRINE INJ 160 MG in SODIUM CHLORIDE 0.9% 234 ML IV PRN (22:35)
[2019-06-11] MEDS: fentaNYL INJ 1,250 MCG in SODIUM CHLORIDE 0.9% 225 ML IV PRN ×6 (00:09→22:40)
[2019-06-11] MEDS: NOREPINEPHRINE 16 MG in SODIUM CHLORIDE 0.9% 242 ML IV PRN ×3 (03:51→18:41)
[2019-06-11] MEDS: INSULIN LISPRO 100 UNIT/ML SUBCUT SCH ×4 (05:00→18:08)
[2019-06-11 05:08] LABS: ABG Base Excess -9.7 MMOL/L (-2.5-2.5); ABG Oxygen Saturation 96.9 % (95-100); ABG PCO2 46.1 MM HG (35-48); ABG PO2 101.9 MM HG (80-95); ABG TCO2 19.4 MMOL/L (23-27)
[2019-06-11 05:11] LABS: ABG PH 7.209 (7.35-7.45)
[2019-06-11 05:17] LABS: Basophils % 0.2 % (0.0-0.8); Eosinophils % 0.3 % (0.00-10.9); Hematocrit 37.4 VOL% (42.0-52.0); Hemoglobin 11.5 GM/DL (14.0-18.0); Immature Granulocytes % 1.9 %; Immature Granulocytes Absolute 0.24 #; Lymphocytes # 0.8 10*3/uL (1.4-4.0); Lymphocytes % 5.9 % (21.2-54.2); Mean Corpuscular HGB Conc 30.7 GM/DL (32-36); Mean Corpuscular Volume 105.1 FL (87-102); Mean Platelet Volume 10.5 FL (9.6-12.0); Monocytes % 6.5 % (1.7-12.7); Neutrophils % 85.2 % (38.7-73.9); Platelet Count 146 T/CUMM (130-400); Red Blood Count 3.56 MC/CUMM (3.8-5.5); Red Cell Distribution Width 16.5 % (9.3-17.3); White Blood Count 12.6 T/CUMM (4-12)
[2019-06-11] MEDS: PIPERACILLIN/TAZOBACTAM 3,375 MG in SODIUM CHLORIDE 0.9% 100 ML IV SCH ×3 (05:22→21:25)
[2019-06-11] MEDS: DILTIAZEM 30 MG TABLET PO SCH (05:25)
[2019-06-11 05:38] LABS: Calcium 7.5 MG/DL (8.5-10.1)
[2019-06-11] MEDS ORDERED: POTASSIUM CHLORIDE RIDER 100 ML IV ONE (06:00)
[2019-06-11] MEDS: POTASSIUM CHLORIDE RIDER 20 MEQ in PREMIX 1 EACH IV PRN ×2 (06:14→09:48)
[2019-06-11] MEDS ORDERED: SODIUM CHLOR 0.9% KCL 20 MEQ 20 MEQ/1,000 ML BAG IV SCH (06:30)
[2019-06-11] MEDS: PHENYLEPHRINE INJ 160 MG in SODIUM CHLORIDE 0.9% 234 ML IV PRN ×3 (06:45→22:15)
[2019-06-11] MEDS ORDERED: SODIUM BICARB INJ 50 MEQ in DEXTROSE 5% 1,000 ML IV SCH (07:00)
[2019-06-11] MEDS: APIXABAN 5 MG TABLET PER TUBE SCH ×2 (08:44→21:25)
[2019-06-11] MEDS: LACTULOSE 20 GM/30 ML UDCUP PO SCH ×4 (08:44→21:25)
[2019-06-11] MEDS: TAMSULOSIN 0.4 MG CAPSULE PO SCH (08:44)
[2019-06-11] MEDS: ZINC SULFATE 220 MG CAPSULE PO SCH (08:44)
[2019-06-11] MEDS: CLOPIDOGREL 75 MG TABLET PO SCH (08:44)
[2019-06-11] MEDS: PANTOPRAZOLE 40 MG VIAL IV SCH (08:45)
[2019-06-11] MEDS: FENOFIBRATE 145 MG TABLET PO SCH (08:45)
[2019-06-11] MEDS: DESITIN 4OZ/NYSTATIN 15 GRAM MIXTURE PASTE TOP SCH ×2 (08:45→21:27)
[2019-06-11 09:03] LABS: Atypical Lymphocytes Few; Band Neutrophils 1 % (0-10); Lymphocytes 5 % (20-55); Segmented Neutrophils 90 % (50-85); Total Cells Counted 100
[2019-06-11 09:04] LABS: Macrocytosis Slight; Platelet Estimate Adequate; Polychromasia Slight
[2019-06-11] MEDS: HYDROXYCHLOROQUINE 200 MG TABLET PO SCH ×2 (09:51→21:25)
[2019-06-11] MEDS ORDERED: DIGOXIN 0.5 MG/2 ML AMP IV ONE ×3 (10:31→16:30)
[2019-06-11] MEDS: HYDROCORTISONE 100 MG VIAL IV SCH ×2 (10:57→18:08)
[2019-06-11 10:58] LABS: Apearance,Urine CLOUDY (Clear); Bilirubin,Urine Negative (Negative); Blood, Urine Moderate mg/dL (Negative); Glucose,Urine (UA) Negative (Negative); Ketones,Urine Negative (Negative); Nitrite,Urine Negative (Negative); Protein,Urine Negative; RBC,Urine 28 /HPF (0-4); Squamous Epithelial Cell,Urine Occasional /HPF (0-10); Urine Color Amber (Yellow); Urine Specific Gravity 1.032 (1.001-1.035); Urine Urobilinogen < 2.0 EU/DL (0.2-1.0); WBC,Urine 2 /HPF (0-6)
[2019-06-11] MEDS: SODIUM BICARB INJ 100 MEQ in STERILE WATER INJ 1,000 ML IV SCH ×3 (11:14→23:31)
[2019-06-11 13:11] LABS: ABG Base Excess -16.1 MMOL/L (-2.5-2.5); ABG HCO3 12.1 MMOL/L (20-26); ABG Oxygen Saturation 99.5 % (95-100); ABG PCO2 37.3 MM HG (35-48); ABG PO2 410.7 MM HG (80-95); ABG TCO2 13.3 MMOL/L (23-27)
[2019-06-11] MEDS ORDERED: ALBUMIN 25% 50 GM in PREMIX 1 EACH IV ONE (13:39)
[2019-06-11] MEDS ORDERED: CALCIUM GLUCONATE 1,000 MG in SODIUM CHLORIDE 0.9% 100 ML IV ONE (13:42)
[2019-06-11] MEDS: SODIUM BICARBONATE 50 MEQ/50 ML VIAL IV ONE ×2 (13:56→14:25)
[2019-06-12] MEDS: INSULIN LISPRO 100 UNIT/ML SUBCUT SCH ×5 (01:21→23:07)
[2019-06-12] MEDS: HYDROCORTISONE 100 MG VIAL IV SCH ×4 (01:21→23:07)
[2019-06-12] MEDS: NOREPINEPHRINE 16 MG in SODIUM CHLORIDE 0.9% 242 ML IV PRN ×2 (01:22→17:11)
[2019-06-12] MEDS: fentaNYL INJ 1,250 MCG in SODIUM CHLORIDE 0.9% 225 ML IV PRN (03:00)
[2019-06-12 04:28] LABS: ABG HCO3 20.2 MMOL/L (20-26); ABG Oxygen Saturation 94.4 % (95-100); ABG PCO2 36.8 MM HG (35-48); ABG PH 7.346 (7.35-7.45); ABG PO2 69.1 MM HG (80-95); ABG TCO2 18.2 MMOL/L (23-27)
[2019-06-12 04:37] LABS: Basophils % 0.2 % (0.0-0.8); Hematocrit 31.2 VOL% (42.0-52.0); Hemoglobin 9.9 GM/DL (14.0-18.0); Immature Granulocytes % 1.2 %; Immature Granulocytes Absolute 0.06 #; Lymphocytes # 0.4 10*3/uL (1.4-4.0); Lymphocytes % 8.1 % (21.2-54.2); Mean Corpuscular HGB Conc 31.7 GM/DL (32-36); Mean Platelet Volume 10.5 FL (9.6-12.0); Monocytes % 7.3 % (1.7-12.7); Neutrophils % 83.2 % (38.7-73.9); Platelet Count 89 T/CUMM (130-400); Red Blood Count 3.03 MC/CUMM (3.8-5.5); Red Cell Distribution Width 16.4 % (9.3-17.3); White Blood Count 5.2 T/CUMM (4-12)
[2019-06-12 04:56] LABS: Calcium 6.6 MG/DL (8.5-10.1); Osmolality,Calculated 300.3 MOS/KG (273-304)
[2019-06-12] MEDS: SODIUM BICARB INJ 100 MEQ in STERILE WATER INJ 1,000 ML IV SCH ×3 (05:07→17:54)
[2019-06-12] MEDS: PIPERACILLIN/TAZOBACTAM 3,375 MG in SODIUM CHLORIDE 0.9% 100 ML IV SCH ×2 (05:08→17:18)
[2019-06-12] MEDS: PHENYLEPHRINE INJ 160 MG in SODIUM CHLORIDE 0.9% 234 ML IV PRN ×3 (05:52→21:48)
[2019-06-12] MEDS: POTASSIUM CHLORIDE RIDER 20 MEQ in PREMIX 1 EACH IV PRN ×4 (06:10→18:21)
[2019-06-12] MEDS: LACTULOSE 20 GM/30 ML UDCUP PO SCH ×4 (08:36→22:31)
[2019-06-12] MEDS: CLOPIDOGREL 75 MG TABLET PO SCH (08:36)
[2019-06-12] MEDS: FENOFIBRATE 145 MG TABLET PO SCH (08:36)
[2019-06-12] MEDS: PANTOPRAZOLE 40 MG VIAL IV SCH (08:36)
[2019-06-12] MEDS: APIXABAN 5 MG TABLET PER TUBE SCH (08:36)
[2019-06-12] MEDS: TAMSULOSIN 0.4 MG CAPSULE PO SCH (08:37)
[2019-06-12] MEDS: DESITIN 4OZ/NYSTATIN 15 GRAM MIXTURE PASTE TOP SCH ×2 (08:37→22:31)
[2019-06-12 10:31] LABS: Band Neutrophils 1 % (0-10); Lymphocytes 5 % (20-55); Segmented Neutrophils 85 % (50-85); Total Cells Counted 100
[2019-06-12 10:32] LABS: Platelet Estimate Decreased; Polychromasia Few
[2019-06-12 10:33] LABS: Anisocytosis 1+; Ovalocytes Few
[2019-06-12] MEDS: POTASSIUM CHLORIDE RIDER 10 MEQ in PREMIX 1 EACH IV PRN (20:53)
[2019-06-12] MEDS: APIXABAN 2.5 MG TABLET PER TUBE SCH (22:31)
[2019-06-13] MEDS: SODIUM BICARB INJ 100 MEQ in STERILE WATER INJ 1,000 ML IV SCH ×4 (01:30→23:53)
[2019-06-13 04:30] LABS: ABG Base Excess 0.9 MMOL/L (-2.5-2.5); ABG HCO3 25.2 MMOL/L (20-26); ABG Oxygen Saturation 98.5 % (95-100); ABG PCO2 41.9 MM HG (35-48); ABG PH 7.398 (7.35-7.45)
[2019-06-13 04:49] LABS: Albumin 1.9 G/DL (3.4-5.0); Bilirubin,Total 2.7 MG/DL (0.2-1.0); Calcium 6.8 MG/DL (8.5-10.1); Osmolality,Calculated 292.8 MOS/KG (273-304); Total Protein 6.1 G/DL (6.4-8.3)
[2019-06-13] MEDS: PIPERACILLIN/TAZOBACTAM 3,375 MG in SODIUM CHLORIDE 0.9% 100 ML IV SCH ×2 (05:10→16:37)
[2019-06-13] MEDS: INSULIN LISPRO 100 UNIT/ML SUBCUT SCH ×3 (05:15→18:30)
[2019-06-13] MEDS: POTASSIUM CHLORIDE RIDER 20 MEQ in PREMIX 1 EACH IV PRN (05:30)
[2019-06-13] MEDS: PHENYLEPHRINE INJ 160 MG in SODIUM CHLORIDE 0.9% 234 ML IV PRN ×3 (05:37→22:19)
[2019-06-13 08:28] LABS: Hematocrit 31.9 VOL% (42.0-52.0); Hemoglobin 10.5 GM/DL (14.0-18.0); Immature Granulocytes % 1.2 %; Immature Granulocytes Absolute 0.07 #; Lymphocytes # 0.3 10*3/uL (1.4-4.0); Lymphocytes % 5.6 % (21.2-54.2); Mean Corpuscular HGB Conc 32.9 GM/DL (32-36); Mean Corpuscular Volume 100.3 FL (87-102); Mean Platelet Volume 10.6 FL (9.6-12.0); Monocytes % 7.2 % (1.7-12.7); Red Blood Count 3.18 MC/CUMM (3.8-5.5); Red Cell Distribution Width 16.1 % (9.3-17.3); White Blood Count 5.7 T/CUMM (4-12)
[2019-06-13 08:29] LABS: Platelet Count 96 T/CUMM (130-400)
[2019-06-13] MEDS: HYDROCORTISONE 100 MG VIAL IV SCH ×2 (08:30→15:37)
[2019-06-13] MEDS: PANTOPRAZOLE 40 MG VIAL IV SCH (08:30)
[2019-06-13] MEDS: CLOPIDOGREL 75 MG TABLET PO SCH (08:31)
[2019-06-13] MEDS: LACTULOSE 20 GM/30 ML UDCUP PO SCH ×4 (08:31→20:45)
[2019-06-13] MEDS: FENOFIBRATE 145 MG TABLET PO SCH (08:31)
[2019-06-13] MEDS: APIXABAN 2.5 MG TABLET PER TUBE SCH ×2 (08:31→20:45)
[2019-06-13] MEDS: TAMSULOSIN 0.4 MG CAPSULE PO SCH (08:31)
[2019-06-13] MEDS: DESITIN 4OZ/NYSTATIN 15 GRAM MIXTURE PASTE TOP SCH ×2 (08:31→20:45)
[2019-06-13 09:17] LABS: Hypochromasia 1+; Ovalocytes Slight; Platelet Estimate Decreased
[2019-06-13] MEDS: DIGOXIN 0.25 MG TABLET PO SCH (12:16)
[2019-06-14] MEDS: HYDROCORTISONE 100 MG VIAL IV SCH ×4 (00:15→23:36)
[2019-06-14] MEDS: INSULIN LISPRO 100 UNIT/ML SUBCUT SCH ×4 (00:17→17:29)
[2019-06-14] MEDS: PIPERACILLIN/TAZOBACTAM 3,375 MG in SODIUM CHLORIDE 0.9% 100 ML IV SCH ×2 (04:44→17:30)
[2019-06-14 04:55] LABS: ABG Base Excess 5.2 MMOL/L (-2.5-2.5); ABG Oxygen Saturation 92.2 % (95-100); ABG PCO2 36.5 MM HG (35-48); ABG PH 7.501 (7.35-7.45); ABG PO2 59.6 MM HG (80-95)
[2019-06-14 05:03] LABS: Basophils % 0.3 % (0.0-0.8); Hematocrit 28.5 VOL% (42.0-52.0); Hemoglobin 9.7 GM/DL (14.0-18.0); Immature Granulocytes Absolute 0.08 #; Lymphocytes # 0.2 10*3/uL (1.4-4.0); Lymphocytes % 5.5 % (21.2-54.2); Mean Corpuscular Volume 96.6 FL (87-102); Mean Platelet Volume 10.3 FL (9.6-12.0); Monocytes % 6.3 % (1.7-12.7); Neutrophils % 85.9 % (38.7-73.9); Platelet Count 72 T/CUMM (130-400); Red Blood Count 2.95 MC/CUMM (3.8-5.5); Red Cell Distribution Width 15.9 % (9.3-17.3)
[2019-06-14 05:10] VITALS: BP 104/56
[2019-06-14 05:33] LABS: Hypochromasia 1+; Lymphocytes 6 % (20-55); Platelet Estimate Decreased; Segmented Neutrophils 84 % (50-85); Total Cells Counted 100
[2019-06-14] MEDS: SODIUM BICARB INJ 100 MEQ in STERILE WATER INJ 1,000 ML IV SCH ×2 (07:18→15:06)
[2019-06-14] MEDS: FENOFIBRATE 145 MG TABLET PO SCH (08:13)
[2019-06-14] MEDS: PANTOPRAZOLE 40 MG VIAL IV SCH (08:13)
[2019-06-14] MEDS: TAMSULOSIN 0.4 MG CAPSULE PO SCH (08:13)
[2019-06-14] MEDS: LACTULOSE 20 GM/30 ML UDCUP PO SCH ×4 (08:15→20:58)
[2019-06-14] MEDS: DESITIN 4OZ/NYSTATIN 15 GRAM MIXTURE PASTE TOP SCH ×2 (08:28→20:59)
[2019-06-14] MEDS: MAGNESIUM SULF RIDER 2 GM in PREMIX 1 EACH IV PRN (08:31)
[2019-06-14 08:42] LABS: Albumin 1.7 G/DL (3.4-5.0); Calcium 6.5 MG/DL (8.5-10.1); Osmolality,Calculated 292.2 MOS/KG (273-304); Total Protein 5.6 G/DL (6.4-8.3)
[2019-06-14] MEDS: CLOPIDOGREL 75 MG TABLET PO SCH (08:43)
[2019-06-14] MEDS: POTASSIUM CHLORIDE RIDER 20 MEQ in PREMIX 1 EACH IV PRN ×5 (09:00→21:02)
[2019-06-14 09:08] LABS: Calcium 6.5 MG/DL (8.5-10.1); Osmolality,Calculated 295.1 MOS/KG (273-304)
[2019-06-14] MEDS: DIGOXIN 0.25 MG TABLET PO SCH (13:13)
[2019-06-14] MEDS ORDERED: SODIUM PHOSPHATE INJ 15 MMOL in SODIUM CHLORIDE 0.9% 250 ML IV ONE (15:00)
[2019-06-14] MEDS: APIXABAN 2.5 MG TABLET PER TUBE SCH (20:58)
[2019-06-14] MEDS: INSULIN GLARGINE 100 UNIT/ML SUBCUT SCH (20:59)
[2019-06-15] MEDS: INSULIN LISPRO 100 UNIT/ML SUBCUT SCH ×5 (01:09→23:48)
[2019-06-15 05:09] LABS: ABG Base Excess 5.6 MMOL/L (-2.5-2.5); ABG HCO3 29.4 MMOL/L (20-26); ABG Oxygen Saturation 90.8 % (95-100); ABG PCO2 42.2 MM HG (35-48); ABG PO2 60.3 MM HG (80-95); ABG TCO2 27.3 MMOL/L (23-27)
[2019-06-15] MEDS: PIPERACILLIN/TAZOBACTAM 3,375 MG in SODIUM CHLORIDE 0.9% 100 ML IV SCH (05:09)
[2019-06-15 05:15] LABS: Basophils % 0.3 % (0.0-0.8); Hematocrit 28.5 VOL% (42.0-52.0); Hemoglobin 9.7 GM/DL (14.0-18.0); Immature Granulocytes % 2.1 %; Immature Granulocytes Absolute 0.08 #; Lymphocytes # 0.3 10*3/uL (1.4-4.0); Lymphocytes % 6.9 % (21.2-54.2); Mean Corpuscular Volume 100.4 FL (87-102); Mean Platelet Volume 10.9 FL (9.6-12.0); Monocytes % 5.3 % (1.7-12.7); NRBC # 0.03 10*3/uL; Neutrophils % 85.4 % (38.7-73.9); Platelet Count 67 T/CUMM (130-400); Red Blood Count 2.84 MC/CUMM (3.8-5.5); Red Cell Distribution Width 15.9 % (9.3-17.3); White Blood Count 3.8 T/CUMM (4-12)
[2019-06-15 05:34] LABS: Calcium 6.5 MG/DL (8.5-10.1); Osmolality,Calculated 301.2 MOS/KG (273-304)
[2019-06-15 05:39] LABS: Hypochromasia 1+; Lymphocytes 4 % (20-55); Myelocytes 1 %; Segmented Neutrophils 87 % (50-85); Total Cells Counted 100
[2019-06-15 05:40] LABS: Macrocytosis Slight; Polychromasia Slight; Target Cells Slight
[2019-06-15 05:42] LABS: Platelet Estimate Decreased
[2019-06-15] MEDS: SODIUM BICARB INJ 100 MEQ in STERILE WATER INJ 1,000 ML IV SCH (05:52)
[2019-06-15] MEDS: POTASSIUM CHLORIDE RIDER 20 MEQ in PREMIX 1 EACH IV PRN ×2 (05:52→09:54)
[2019-06-15] MEDS: CLOPIDOGREL 75 MG TABLET PO SCH (08:47)
[2019-06-15] MEDS: HYDROCORTISONE 100 MG VIAL IV SCH ×3 (08:47→23:49)
[2019-06-15] MEDS: APIXABAN 2.5 MG TABLET PER TUBE SCH ×2 (08:47→20:05)
[2019-06-15] MEDS: TAMSULOSIN 0.4 MG CAPSULE PO SCH (08:47)
[2019-06-15] MEDS: LACTULOSE 20 GM/30 ML UDCUP PO SCH ×4 (08:47→20:06)
[2019-06-15] MEDS: DESITIN 4OZ/NYSTATIN 15 GRAM MIXTURE PASTE TOP SCH ×2 (08:48→20:07)
[2019-06-15] MEDS: PANTOPRAZOLE 40 MG VIAL IV SCH (08:48)
[2019-06-15] MEDS: FENOFIBRATE 145 MG TABLET PO SCH (08:48)
[2019-06-15] MEDS: DIGOXIN 0.25 MG TABLET PO SCH (12:14)
[2019-06-15] MEDS: SODIUM CHLORIDE 0.9% 1,000 ML IV SCH (12:16)
[2019-06-15] MEDS: INSULIN GLARGINE 100 UNIT/ML SUBCUT SCH (20:06)
[2019-06-16] MEDS: SODIUM CHLORIDE 0.9% 1,000 ML IV SCH (01:21)
[2019-06-16 04:38] LABS: Basophils % 0.2 % (0.0-0.8); Hematocrit 30.3 VOL% (42.0-52.0); Hemoglobin 9.6 GM/DL (14.0-18.0); Immature Granulocytes % 4.8 %; Immature Granulocytes Absolute 0.26 #; Lymphocytes # 0.2 10*3/uL (1.4-4.0); Lymphocytes % 4.3 % (21.2-54.2); Mean Corpuscular HGB Conc 31.7 GM/DL (32-36); Mean Corpuscular Volume 103.4 FL (87-102); Mean Platelet Volume 10.9 FL (9.6-12.0); Monocytes % 5.2 % (1.7-12.7); NRBC # 0.06 10*3/uL; Neutrophils % 85.5 % (38.7-73.9); Platelet Count 56 T/CUMM (130-400); Red Blood Count 2.93 MC/CUMM (3.8-5.5); Red Cell Distribution Width 15.9 % (9.3-17.3); White Blood Count 5.4 T/CUMM (4-12)
[2019-06-16 04:49] LABS: Calcium 6.7 MG/DL (8.5-10.1); Osmolality,Calculated 307.8 MOS/KG (273-304)
[2019-06-16] MEDS: POTASSIUM CHLORIDE RIDER 20 MEQ in PREMIX 1 EACH IV PRN (05:09)
[2019-06-16 05:16] LABS: Band Neutrophils 2 % (0-10); Hypochromasia 1+; Lymphocytes 6 % (20-55); Microcytosis 1+; Nucleated Red Blood Cells 1 (0-5); Platelet Estimate Decreased; Segmented Neutrophils 81 % (50-85); Total Cells Counted 100
[2019-06-16] MEDS: INSULIN LISPRO 100 UNIT/ML SUBCUT SCH ×2 (05:42→11:37)
[2019-06-16 05:46] LABS: ABG Base Excess 3.5 MMOL/L (-2.5-2.5); ABG HCO3 27.5 MMOL/L (20-26); ABG Oxygen Saturation 97.4 % (95-100); ABG PCO2 44.5 MM HG (35-48); ABG PH 7.415 (7.35-7.45); ABG PO2 91.4 MM HG (80-95); ABG TCO2 25.8 MMOL/L (23-27)
[2019-06-16] MEDS: CLOPIDOGREL 75 MG TABLET PO SCH (08:02)
[2019-06-16] MEDS: HYDROCORTISONE 100 MG VIAL IV SCH (08:02)
[2019-06-16] MEDS: PANTOPRAZOLE 40 MG VIAL IV SCH (08:02)
[2019-06-16] MEDS: LACTULOSE 20 GM/30 ML UDCUP PO SCH ×2 (08:02→14:01)
[2019-06-16] MEDS: FENOFIBRATE 145 MG TABLET PO SCH (08:02)
[2019-06-16] MEDS: APIXABAN 2.5 MG TABLET PER TUBE SCH (08:02)
[2019-06-16] MEDS: TAMSULOSIN 0.4 MG CAPSULE PO SCH (08:02)
[2019-06-16] MEDS: DESITIN 4OZ/NYSTATIN 15 GRAM MIXTURE PASTE TOP SCH (08:03)
[2019-06-16] MEDS ORDERED: POTASSIUM CHLORIDE 20 MEQ/15 ML UDCUP PER TUBE PRN (08:59)
[2019-06-16] MEDS ORDERED: MORPHINE 4 MG/1 ML VIAL IV SCH (13:48)
[2019-06-16] MEDS: DIGOXIN 0.25 MG TABLET PO SCH (14:01)
== END 2019-06-16 14:24 | disposition expired | DRG 870 ==
LOC: EDUNIT# → EDBD → N.ED 18:32 → N.EDINP 22:31 → SUPCPDRO 22:31 → SUATTDRO 22:31 → N.2E 06-07 00:35 → N.2W 06-07 13:32 → N.CC 06-07 20:43
PROVIDERS: ADMIT Family Medicine; ATTEND Internal Medicine